=== PATIENT | male | born 1955 | race Caucasian/White ===

== ENCOUNTER 2025-02-19 19:18 | Emergency (ER) | payer BC, SELFPAY ==
[2025-02-19 19:23] VITALS: BP 153/75
--- NOTE | 2025-02-19 22:12 | ED.GENMED ---
History of Present Illness
General
Chief Complaint: Wound Check/Suture Removal
Source: patient
Exam Limitations: none
Time Seen by Provider: 02/19/25 21:31
Nursing documentation reviewed up to this point in time: agreed with
History of Present Illness
History of Present Illness:
Patient to ED for wound assessment. He was admitted at a facility in [facility] for cellulitis, abcess to right medila thigh. attempted to change packing tonight but could not find packing. Brought to ED for eval
Past History
Past History
ED Past Medical History: NIDDM and Other (Agree with documented past medical history)
ED Past Surgical History: Other (Agree with documented past surgical history)
Social History
Tobacco: Non-smoker
Personal:
Living: with family
Review of Systems
Review of Systems
Allergies reviewed?: Yes
All Other Systems: ROS reviewed and negative except as documented in HPI and ROS
Constitutional: Reports no symptoms
EENT: Reports no symptoms
Respiratory: Reports no symptoms
Cardiac: Reports no symptoms
ABD/GI: Reports no symptoms
: Reports no symptoms
Musculoskeletal: Reports no symptoms
Skin: Reports other (Abcess I&D site right medial proximal thigh. NO erythema. No packing in place)
Neurological: Reports no symptoms
Psychiatric: Reports no symptoms
Phy Exam
General Physical Exam
General Presentation: well appearing and no apparent distress
General age: appears stated age
General Skin: warm and dry
General Habitus: normal
Musculoskeletal Exam
Musculoskeletal Exam: full ROM and neuro vasc intact
Skin Exam
Skin Exam: normal color, warm/dry, no rash and other (Abscess I&D site without redness, swelling, drainage. NO packing indentified. WOund flushed iwth NSS and packed, covered with dry dessing.)
Psychiatric Exam
Psychiatric Exam: normal mood/affect
Course
Vital Signs
Initial and Last Documented VS:
Initial Vital Signs
Temp Pulse Resp BP Pulse Ox
98.1 F 79 16 153/75 96
02/19/25 19:23 02/19/25 19:23 02/19/25 19:23 02/19/25 19:23 02/19/25 19:23
Last Documented Vital Signs
Temp Pulse Resp BP Pulse Ox
98.1 F 79 16 153/75 96
02/19/25 19:23 02/19/25 19:23 02/19/25 19:23 02/19/25 19:23 02/19/25 22:13
*Pulse Oximetry
SaO2: 96
Oxygen Mode of Delivery: Room air
Patient hypoxic: no
*Critical Care Note
Total Time (30-74mins, 75-104mins- exclusive of procedures): Not Applicable
ED Attending Note
-
Portions of this chart may have been created with voice recognition software.� Occasional wrong word or��sound alike� substitutions may have occurred due to the inherent limitations of voice recognition software.
Discharge Plan
Departure
Patient Disposition: Home (Routine Discharge)
Date of Disposition: 02/19/25
Time of Disposition: 21:50
Patient with high blood pressure during this ER visit?: No
Condition: Good
Covid-19: Not Applicable
Discharge Problem:
Wound check, abscess
Instructions: Wound Care (DC)
Prescriptions:
No Action
hydrocodone-acetaminophen 1 TABLET tablet
1 tab PO Q4HPRN PRN (Reason: pain) Qty: 12 0RF
sulfamethoxazole-trimethoprim 1 TABLET tablet
1 tab PO BID Qty: 14 0RF
Referrals:
UNKNOWN - PT DOES,NOT KNOW [Unknown Provider]
Activity Restrictions/Additional Instructions:
Follow up iwth your surgeon as scheduled.
Interventions
Interventions:
*Risk Screen - Suicide Last Done: 02/19/25 19:23
*General Assessment Last Done: 02/19/25 21:54
*Neglect/Abuse Screening Last Done: 02/19/25 19:23
*ED- Fall Risk Assessment Last Done: 02/19/25 21:54
*Nursing Disposition Last Done: 02/19/25 21:55
ED-Skin Assessment Last Done: 02/19/25 21:54
Discharge Date and Time
Discharge Date/Time: 02/19/25 21:56
Print Language: RUSSIAN
== END 2025-02-19 21:56 | disposition home or self-care (01) ==
LOC: EMR 19:18
PROVIDERS: EMERGENCY PHYSICIAN Emergency Medicine; FAMILY PHYSICIAN Internal Medicine
DX: Z48.01 Encounter for change or removal of surgical wound dressing (principal); E11.9 Type 2 diabetes mellitus without complications
CPT/HCPCS: 99281

== ENCOUNTER → 2025-03-10 08:13 | Outpatient (REF) | payer BC, SELFPAY | LOC: WOUND 08:13 | PROVIDERS: ATTENDING PHYSICIAN Surgery; FAMILY PHYSICIAN Internal Medicine | DX: S31.103A Unspecified open wound of abdominal wall, right lower quadrant without penetration into peritoneal cavity, initial encounter (principal); E11.9 Type 2 diabetes mellitus without complications; X58.XXXA Exposure to other specified factors, initial encounter | CPT/HCPCS: 99203 ==